=== PATIENT | male | born 1990 | race American Indian/Alaskan Native ===

== ENCOUNTER 2018-12-20 23:26 | Emergency (ER) | payer OTHER ==
[2018-12-21 00:31] LABS: Basophils % (Auto) 0.5 % (0.0-1.8); Eosinophils # (Auto) 0.2 K/mm3 (0.0-0.4); Eosinophils % (Auto) 2.3 % (0.0-4.3); Hematocrit 44.7 % (35.5-45.6); Hemoglobin 15.2 gm/dl (11.8-15.2); Lymphocytes # (Auto) 2.1 K/mm3 (1.2-5.4); Lymphocytes % (Auto) 28.1 % (13.4-35.0); Mean Corpuscular HGB Conc 34 % (32-34); Mean Corpuscular Volume 89 fl (84-94); Monocytes # (Auto) 0.5 K/mm3 (0.0-0.8); Platelet Count 266 K/mm3 (140-440); Red Blood Count 5.05 M/mm3 (3.65-5.03); Red Cell Distribution Width 14.4 % (13.2-15.2)
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
[2018-12-21 00:50] LABS: BUN/Creatinine Ratio 9; Blood Urea Nitrogen 10 mg/dL (9-20); Calcium 9.2 mg/dL (8.4-10.2); Hemolysis Index 43
[2018-12-21 00:54] LABS: Bilirubin,Urine NEG (Negative); Blood,Urine NEG (Negative); Color,Urine Yellow (Yellow); Mucus,Urine FEW /HPF; Protein,Urine <15 mg/dL mg/dL (Negative)
[2018-12-21 01:07] LABS: Benzodiazepines Screen,Urine PRESUMPTIVE NEGATIVE; Cocaine Screen,Urine PRESUMPTIVE NEGATIVE; Methadone Screen,Urine PRESUMPTIVE NEGATIVE; Opiate Screen,Urine PRESUMPTIVE NEGATIVE
[2018-12-21 01:22] LABS: Amphetamine Screen,Urine PRESUMPTIVE POSITIVE; Cannabinoid Screen,Urine PRESUMPTIVE POSITIVE
[2018-12-21] MEDS ORDERED: THORAZINE IM PRN (11:12)
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
[2018-12-21] MEDS ORDERED: BENADRYL IM ONE ×2 (14:49→14:50)
[2018-12-21] MEDS ORDERED: ATIVAN IV ONE (14:49)
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
[2018-12-21] MEDS: PAXIL PO SCH (16:46)
[2018-12-21] MEDS: MINIPRESS PO SCH (22:05)
[2018-12-21] MEDS ORDERED: HALDOL IM ONE (22:17)
[2018-12-21] MEDS ORDERED: ATIVAN IM ONE (22:17)
[2018-12-22] MEDS: PAXIL PO SCH (11:00)
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
[2018-12-22 21:02] VITALS: BP 146/86
[2018-12-22] MEDS: MINIPRESS PO SCH (22:15)
--- NOTE | 2018-12-23 12:10 | Progress Note ---
Subjective - Reason for Consult Consult date: 12/23/18 Reason for consult: Psychiatric Follow-up Evaluation - Chief Complaint Chief complaint: Patient not seen. Patient discharged. Mental Status Exam - Vital signs Last Vital Signs Temp 99.2 F 12/22/18 19:35 Pulse 100 H 12/22/18 19:35 Resp 18 12/22/18 19:35 BP 146/86 12/22/18 19:35 Pulse Ox 99 12/22/18 19:35
== END 2018-12-23 00:29 ==
LOC: EEVIPCON 23:26 → ED 23:26
DX: F29 Unspecified psychosis not due to a substance or known physiological condition (principal); F14.10 Cocaine abuse, uncomplicated; F17.200 Nicotine dependence, unspecified, uncomplicated; F12.10 Cannabis abuse, uncomplicated; F15.10 Other stimulant abuse, uncomplicated
CPT/HCPCS: 36415; 80048; 80307; 81001; 85025; 96372; 99284; G0480; J1200; J2060; J3230; 80320